=== PATIENT | male | born 1975 | race Caucasian/White ===

== ENCOUNTER 2019-01-19 23:59 | Inpatient (IN) | payer MEDICAID ==
[~2019-01-19] VITALS: Ht 190.5 cm; Wt 104.8 kg
--- NOTE | 2019-01-20 00:10 | NUR ---
PATIENT WALKED INTO ER C/O LEFT CHEST WALL PAIN WITH PAIN OCCASIONALLY RADIATING TO JAW,LEFT NECK AND ARM FOR OVER 1 MONTH.
--- NOTE | 2019-01-20 00:17 | NUR ---
Dr. Ortiz on bedside for MSE.
[2019-01-20] MEDS ORDERED: NITROGLYCERIN 0.4 MG/TAB BOTTLE SL PRN (00:30)
[2019-01-20] MEDS ORDERED: HYDROCODONE/APAP 5-325MG TABLET PO PRN (00:30)
[2019-01-20] MEDS ORDERED: MORPHINE SULFATE 2 MG/1 ML DISP.SYRIN IV PRN ×2 (00:30→06:30)
[2019-01-20] MEDS ORDERED: ONDANSETRON 4 MG/2 ML VIAL IV PRN (00:30)
[2019-01-20] MEDS ORDERED: ACETAMINOPHEN 325 MG TABLET PO PRN (00:30)
[2019-01-20] MEDS ORDERED: TEMAZEPAM 15 MG CAPSULE PO PRN (00:30)
[2019-01-20] MEDS ORDERED: MAGNESIUM HYDROXIDE 30 ML LIQUID UDC PO PRN (00:30)
[2019-01-20 00:35] LABS: BASOPHILS # (AUTO) 0.1 K/uL (0.0-8.0); BASOPHILS % (AUTO) 0.7 % (0.0-2.0); EOSINOPHILS # (AUTO) 0.2 K/uL (0.0-0.7); EOSINOPHILS % (AUTO) 1.6 % (0.0-7.0); HEMATOCRIT 43.8 % (36.7-47.1); LYMPHOCYTES # (AUTO) 2.8 K/uL (20.0-40.0); LYMPHOCYTES % (AUTO) 25.9 % (20.5-51.5); MEAN CORPUSCULAR HEMOGLOBIN 30.1 uug (23.8-33.4); MEAN CORPUSCULAR HGB CONC 34 g/dL (32.5-36.3); MEAN CORPUSCULAR VOLUME 87.8 fL (73.0-96.2); MONOCYTES # (AUTO) 1.2 K/uL (2.0-10.0); MONOCYTES % (AUTO) 11.3 % (0.0-11.0); NEUTROPHILS # (AUTO) 6.4 K/uL (1.8-8.9); NEUTROPHILS % (AUTO) 60.5 % (38.5-71.5); PLATELET COUNT (AUTO) 237 K/uL (152-348); RED BLOOD CELL COUNT(AUTO) 4.99 MIL/uL (4.06-5.63); WHITE BLOOD COUNT (AUTO) 10.7 K/uL (3.6-10.2)
[2019-01-20 00:51] LABS: CREATININE 0.8 mg/dL (0.6-1.3); POTASSIUM 3.8 mmol/L (3.5-5.1)
[2019-01-20 00:59] LABS: *AMPHETAMINE, URINE POSITIVE (NEGATIVE); *BARBITURATE, URINE NEGATIVE (NEGATIVE); *CANNABINOID, URINE NEGATIVE (NEGATIVE); *COCCAINE, URINE NEGATIVE (NEGATIVE); *OPIATE, URINE NEGATIVE (NEGATIVE); *PHENCYCLIDINE SCREEN,URINE NEGATIVE (NEGATIVE)
[2019-01-20 01:00] LABS: BILIRUBIN,DIRECT 0.1 mg/dL (0.0-0.2); BILIRUBIN,TOTAL 0.3 mg/dL (0.2-1.0); TOTAL PROTEIN, SERUM 6.9 g/dL (6.4-8.2)
--- NOTE | 2019-01-20 01:35 | NUR ---
Patient transferred from ER to the telemetry unit Room #321 via wheelchair.
[2019-01-20 01:49] VITALS: BP 138/87
--- NOTE | 2019-01-20 01:55 | NUR ---
Patient received from ER. ID band on. IV in tact and patent. no signs of acute distress. v/s stable. belongings list completed and signed by [employer]. will continue to monitor and complete admissions process.
[2019-01-20 04:33] VITALS: BP 128/83
--- NOTE | 2019-01-20 06:15 | NUR ---
patient left AMA. patient v/s stable and no signs of acute distress throughout shift. Normal sinus rhythm on tele monitor. as I was in another patients room I was informed by another RN that patient was in the elevator leaving. 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 I tried to explain to the patient and education him that he should stay for further evaluation, but patient refused. he also refused to sign AMA paperwork and discontinue IV line. He was cussing, angry, verbally aggressive and flailing his arms around. Security was contacted and patient was stopped in parking lot and brought to lobby. patient was calmed down and IV was discontinued safely and AMA paperwork was signed. incident report completed. charge notified Dr. Kwok regarding AMA patient.
[2019-01-20] MEDS ORDERED: ASPIRIN 81 MG TAB.CHEW PO SCH (09:00)
== END 2019-01-20 06:15 | disposition left against medical advice (07) | DRG 198 ==
LOC: ER 01-20 00:04 → TELE3 01-20 01:32
PROVIDERS: ADMIT Nurse Practitioner Acute Care; ATTEND Nurse Practitioner Acute Care
DX: I24.9 Acute ischemic heart disease, unspecified (principal); E66.9 Obesity, unspecified; M94.0 Chondrocostal junction syndrome [Tietze]; F15.10 Other stimulant abuse, uncomplicated; I25.10 Atherosclerotic heart disease of native coronary artery without angina pectoris; F17.210 Nicotine dependence, cigarettes, uncomplicated; Z68.28 Body mass index [BMI] 28.0-28.9, adult
CPT/HCPCS: 36415; 70030-TC; 71045; 80307; 85025; 85730; 93005; A4663; G0378